=== PATIENT | female | born 1980 | race Caucasian/White ===

== ENCOUNTER → 2018-11-04 | Outpatient (CLI) | payer OTHER | LOC: FIMAGING 09:43 | PROVIDERS: ATTEND Advanced Practice Midwife | DX: O09.522 Supervision of elderly multigravida, second trimester (principal); O43.122 Velamentous insertion of umbilical cord, second trimester; Z3A.19 19 weeks gestation of pregnancy ==

== ENCOUNTER → 2019-01-22 | Outpatient (CLI) | payer OTHER | LOC: FIMAGING 09:18 | PROVIDERS: ATTEND Advanced Practice Midwife | DX: O09.523 Supervision of elderly multigravida, third trimester (principal); Z3A.31 31 weeks gestation of pregnancy ==